=== PATIENT | male | born 1965 | race Caucasian/White ===

== ENCOUNTER 2017-03-29 14:50 | Emergency (ER) | payer OTHER ==
[~2017-03-29] VITALS: Ht 175.3 cm; Wt 77.3 kg
[2017-03-29 15:05] VITALS: BP 123/78; PULSE 88; RESP 16; O2SAT 97
--- NOTE | 2017-03-29 15:28 | ED.REPORT ---
HPI-Extremity Problem Lower Date of Service March 29, 2017 ED Provider: Lul is a 51-year-old male presents with chief complaint of right knee pain. He believes he dislocated his knee. Sensation states that he was playing catch when he stepped in all his knee collapsed to the inside. He states that his lower leg was out of alignment until he stood up and it popped back in. Patient was able to walk on the leg after that. Reports pain in the knee. Nursing Notes Stated Complaint: DISLOCATED RIGHT KNEE Chief Complaint: Extremity Trauma Nursing Notes Reviewed: Yes Allergies: Coded Allergies: No Known Allergies (Unverified , 03/29/17) No Active Prescriptions or Reported Meds General Time Seen by MD: 15:28 Chief Complaint Knee injury right Past Medical History Past Medical History Hx of alcohol abuse Hx of methamphetamine abuse left shoulder injury TIA Past Surgical History Left shoulder surgery Family History Reports: Stroke Smoking History Former Smoker Social History Alcohol Use: In recovery Drug Use: Meth Ambulatory Status Independent Review of Systems Review of Systems Note: Negative unless stated otherwise in history of present illness Physical Exam General: Well appearing, well developed, well nourished, no acute distress. Hip: Nontender, full range of motion. Right knee: Normal to inspection, extremely mild tenderness at the lateral tibial plateau. Negative tenderness at medial/lateral joint line, tibial tuberosity, patella. Negative apprehension sign. Negative Pierre's cyst. Excellent range of motion. No laxity noted in either varus or valgus stress, anterior or posterior drawer test. Right foot/ankle: DP and PT pulses 2+, foot is warm with brisk capillary refill , sensation intact. Ankle normal to inspection, nontender with full range of motion. Head: Atraumatic, normocephalic. Eyes: No scleral icterus or injection. No discharge. Vision grossly intact. ENT: Voice clear, hearing grossly intact. Respiratory: No respiratory distress, no increased work of breathing. Speaks in complete sentences. Skin: Warm and dry. Neurological: Grossly nonfocal. Psychological: alert and oriented. Speech appropriate, linear and logical. Behavior appropriate. Initial Vital Signs Vital Signs (First) Date Time Temp Pulse Resp B/P Pulse Ox O2 Delivery O2 Flow Rate FiO2 03/29/17 15:05 36.4 88 16 123/78 97 Room Air Initial VS: Vital signs normal Re-Eval/Medical Decision Med Decision/Clinical Course 51-year-old male with history of substance abuse presents with a chief complaint of right knee pain. He believes he dislocated his knee when he stepped in hole playing catch and relocated it when he stood up from falling. Patient is walking on the affected limb. Physical examination reveals a normal to inspection, with minimal tenderness over the lateral tibial plateau, good range of motion. PT and DP pulses 2+, warm with brisk capillary refill. Sensation intact. No laxity noted on physical examination. At this point I am reassured that this is unlikely to be a dislocated and spontaneously reduced dislocation which would raise concern for vascular compromise. The patient declined x-ray, and I have low suspicion for fracture. Considering that during the patient is walking on the limb and has a extremely benign physical examination I have low concern for disruption of any of the ligaments of the knee or meniscus. Discharged to home with instructions for RICE and Matthew wrap. Patient reports improvement in pain with ketorolac and acetaminophen. Advised regarding [id number] analgesia, primary care follow-up, emergency return precautions. Patient verbalizes understanding of and consent to the plan. Discharge & Departure Impression: Primary Impression: Right knee pain Chronicity: acute Qualified Code: M25.561 - Pain in right knee Disposition: Home Discharge Condition All VS Reviewed: Yes Condition: Stable Patient Instructions: RICE Therapy (ED) Additional Instructions: Evaluation in the emergency department for right knee pain includes history and physical examination, both of which are reassuring that there is unlikely to be due to a serious injury. While I cannot definitively rule out a fracture, I feel is unlikely and you have declined an x-ray, which I feel is reasonable. Treatment is with rest, ice, compression and elevation. Rest the affected limb as much possible over the next several days, apply ice 2-3 times a day, keep the knee in an Matthew compression wrap to help reduce swelling and keep it elevated at or near the level of your heart as much as possible. We have placed the knee in an Matthew wrap in the emergency department. Feel free to take this off to bathe or adjust for comfort. The pain is best treated with up to 800 mg of ibuprofen (Advil, Motrin) every 6 hours, or up to 1000 mg of acetaminophen (Tylenol) every 6 hours. These drugs can be taken at the same time for more severe pain. Follow-up with your primary care provider if this is not significantly improved in about a week. Return to emergency department for any new or worsening symptoms including increasing pain or the development of a cold/numb foot. Referrals: BELIA PETERS (PCP) EDSupervising Provider for APC: Yaw Kern MD copies to: BELIA PETERS Shawna L MD March 29, 2017 15:28 Rufino Gan PA-C March 29, 2017 15:56
== END 2017-03-29 16:30 | disposition home or self-care (01) ==
LOC: SED 14:50
DX: M25.561 Pain in right knee (principal); X50.9XXA Other and unspecified overexertion or strenuous movements or postures, initial encounter; Y93.79 Activity, other specified sports and athletics; Y92.9 Unspecified place or not applicable; Y99.8 Other external cause status; F15.10 Other stimulant abuse, uncomplicated; Z87.891 Personal history of nicotine dependence
CPT/HCPCS: 96372; 99283; J1885

== ENCOUNTER 2017-06-02 01:46 | Emergency (ER) | payer OTHER ==
[~2017-06-02] VITALS: Ht 175.3 cm; Wt 75.0 kg
[2017-06-02 01:50] VITALS: BP 154/92; PULSE 52; RESP 18; O2SAT 100
--- NOTE | 2017-06-02 02:27 | ED.REPORT ---
HPI-Dental/Mouth Prob Date of Service Jun 02, 2017 ED Provider: Dr. Chris Dunlap MD A 52 year old male with a history of alcohol abuse, meth abuse and previous TIA presents to the ED complaining right lower dental pain that became increasingly worse earlier this evening. He reports insomnia secondary to pain and is currently seeking relief from the pain. The patient does not currently have a dentist or a scheduled appointment. Nursing Notes Stated Complaint: DENTAL PAIN Chief Complaint: Dental Nursing Notes Reviewed: Yes Allergies: Coded Allergies: No Known Allergies (Unverified , 06/02/17) Scheduled Amoxicillin (Amoxicillin) 500 Mg Tablet 500 MG PO TID Scheduled PRN Ibuprofen (Ibuprofen) 600 Mg Tablet 600 MG PO QID PRN PRN For Pain Tramadol (Tramadol) 50 Mg Tablet 100 MG PO Q6H PRN PRN For Pain General Time Seen by MD: 02:27 Chief Complaint Other (Dental Pain) Hx Obtained From: Patient Arrived By: Walk-in Onset Occurred: 1 - 4 hours ago Symptom Duration: Since onset Location: : Tooth lower R molar Quality: Painful Radiation: : Does not radiate Severity: Current: Mild Severity: Maximum: Mild Pertinent Negative: Pt denies other symptoms Recent Healthcare: No recent doctor visit, No recent hospitalization Past Medical History Past Medical History Hx of alcohol abuse Hx of methamphetamine abuse Left shoulder injury TIA Past Surgical History Left shoulder surgery Family History Reports: Stroke Smoking History Former Smoker Social History Alcohol Use: In recovery Drug Use: Meth Ambulatory Status Independent Review of Systems Ears / Nose / Throat: Reports: Toothache Complete sys rev & neg: except as marked. Physical Exam Initial Vital Signs Vital Signs (First) Date Time Temp Pulse Resp B/P Pulse Ox O2 Delivery O2 Flow Rate FiO2 06/02/17 01:50 37.0 52 18 154/92 100 Room Air Initial VS: Reviewed Extremities: Vascular intact, Neuro intact, No swelling, No tenderness Skin: Warm, Dry, No cyanosis Neurologic: Alert, Oriented, Nonfocal ENT: Atraumatic, Airway patent, Mucous membranes moist, Pharynx NL Dental / Gums: Positive: Decay extensive, Decay single tooth (#32), Dental abscess, Dental caries present, Dentition poor Neck: Atraumatic, Supple, Full range of motion General/Constitutional: Awake, Alert, No acute distress Head / Eyes: Atraumatic, Normocephalic, PERRL Respiratory / Chest: Atraumatic, Breath sounds NL, Breath sounds = bilat, No respiratory distress Cardiovascular: Heart rate NL, Regular rhythm, Heart sounds NL Procedures Dental Nerve Block Dental Nerve Block Note: Lower right jaw block Time: :26 Block Performed by: ED physician Consent / Setup / Site Prep: Consent from patient, Time-out performed, Mucous membrane dried, Topical anesthetic rosendo, Hand hygiene observed, Stand sterile technique, Sterile drapes applied Local Anesthesia: Lidocaine w epi 1% Post-Procedure / Complications: No complications, Condition improved, Tolerated procedure well, Patient stable, No bleeding Re-Eval/Medical Decision Med Decision/Clinical Course Dental abscess in the right lower provided with dental block with relief. Home with amoxicillin brief tramadol and ibuprofen. Follow-up with dentist strongly encouraged Re-Evaluation/Progress : Time of Eval: : Patient Status: Condition improved Re-Evaluation/Progress Note: Patient is re-evaluated. Dental block is performed. Patient tolerates the procedure without any complications. The patient understands and agrees with the intended treatment plan. Counseled Regarding: Diagnosis, Need for follow-up, When/why to return to ED Discharge & Departure Primary Impression: Toothache Additional Impression: Dental abscess Disposition: Home Discharge Condition All VS Reviewed: Yes Condition: Improved Patient Instructions: Dental Abscess (ED), Dental Caries (ED), Toothache (ED) Additional Instructions: It is critical that you see a dentist JULIETA. Refer to referral list for local dental resources. It is not necessary to have a physician referral to see a dentist. Take amoxicillin three times a day. Take the ibuprofen four times a day. He may use tramadol two tablets four times a day as needed for the first two days. Never exceed eight tablets a day of tramadol. Return if any immediate issues with swallowing, breathing, or speaking. Referrals: Jennie Diaz MD (PCP) [facility] Scribe Attestation Portions of this note were transcribed by Adrienne Kennedy. I, Dr. Dunlap personally performed the history, physical exam and medical decision-making; I reviewed and confirmed the accuracy of the information in the transcribed note. copies to: Jennie Diaz MD, Christopher W MD Jun 02, 2017 02:27 ADRIENNE KENNEDY Jun 02, 2017 02:36
[2017-06-02] MEDS ORDERED: Bupivacaine 0.5%/EPI 50 mL Inj INFILTRATE ONE (02:35)
[2017-06-02] MEDS ORDERED: Dexamethasone 20 mg/2 mL Oral Solution PO ONE (02:35)
[2017-06-02] MEDS ORDERED: Lidocaine 2%-Epi 1:100,000 20 mL Inj ONE (03:26)
[2017-06-02] MEDS ORDERED: AMOX500T2 PO (03:37)
[2017-06-02] MEDS ORDERED: TRAM50TA2 PO (03:37)
[2017-06-02] MEDS ORDERED: IBUP-1827 PO (03:37)
[2017-06-02 04:00] VITALS: BP 146/90; PULSE 61; RESP 16; O2SAT 98
== END 2017-06-02 04:02 | disposition home or self-care (01) ==
LOC: SED 01:46
DX: K08.89 Other specified disorders of teeth and supporting structures (principal); K04.7 Periapical abscess without sinus; Z87.891 Personal history of nicotine dependence; Z86.73 Personal history of transient ischemic attack (TIA), and cerebral infarction without residual deficits
CPT/HCPCS: 64400; 99283; J1885

== ENCOUNTER 2017-06-28 16:31 | Emergency (ER) | payer OTHER ==
[~2017-06-28] VITALS: Ht 175.3 cm; Wt 75.0 kg
[~2017-06-28 16:31] MED LIST: AMOX500T2 PO; IBUP-1827 PO; TRAM50TA2 PO
[2017-06-28 16:48] VITALS: BP 122/80; PULSE 61; RESP 20; O2SAT 98
--- NOTE | 2017-06-28 16:55 | ED.REPORT ---
HPI-Chest Pain 40 and Over Date of Service Jun 28, 2017 ED Provider: Galindo Matthews MD Pt is a 52 y/o male w/ a hx of TIA, polysubstance abuse, presenting to the ED c/ o intermittent CP onset 2 days ago. The patient was sitting down and began to experience a sensation of something pushing out below his left nipple lasting 10 minutes which was followed by a short duration syncopal episode. His chest pain is resolved at time of arrival and seems to return intermittently but mildly. There was never any radiation of his pain and it is not brought on by anything. Since the episode he has been experiencing SOB and fatigue. He smoked meth 2 days ago which he apparently doesn't do often. He says he had a similar episode in August and was told it was a TIA. He has a bed available at detox at 03:00 to make sure that he doesn't continue to use drugs. PCP: Joe Nursing Notes Stated Complaint: LIGHT HEADED,CHEST PAIN Chief Complaint: Chest Pain Nursing Notes Reviewed: Yes Allergies: Coded Allergies: No Known Allergies (Unverified , 06/02/17) Scheduled Amoxicillin (Amoxicillin) 500 Mg Tablet 500 MG PO TID Scheduled PRN Ibuprofen (Ibuprofen) 600 Mg Tablet 600 MG PO QID PRN PRN For Pain Tramadol (Tramadol) 50 Mg Tablet 100 MG PO Q6H PRN PRN For Pain General Time Seen by MD: 16:54 Chief Complaint Chest pain Hx Obtained From: Patient Arrived By: Walk-in Sudden in Onset?: Yes Onset Occurred: 2 days ago Symptom Duration: Intermittent Location: : Chest left Quality: Painful Severity: Current: No pain currently Severity: Maximum: Moderate Past Medical History Past Medical History Hx of alcohol abuse Hx of methamphetamine abuse Left shoulder injury TIA Past Surgical History Left shoulder surgery Arm Finger Family History Reports: Stroke Smoking History Former Smoker Social History Alcohol Use: In recovery Drug Use: Meth Ambulatory Status Independent Review of Systems Constitutional: Reports: Fatigue Respiratory: Reports: Shortness of breath Cardiovascular: Reports: Chest pain Neurologic: Reports: Syncope Complete sys rev & neg: except as marked. Physical Exam Initial Vital Signs Vital Signs (First) Date Time Temp Pulse Resp B/P Pulse Ox O2 Delivery O2 Flow Rate FiO2 06/28/17 16:48 37.2 61 20 122/80 98 Room Air Initial VS: Reviewed, Vital signs normal Head / Eyes: Atraumatic, Normocephalic ENT: Mucous membranes moist, Conjunctiva normal Neck: Full range of motion Extremities: Vascular intact, Neuro intact, No swelling Skin: Warm, Dry, No cyanosis Neurologic: Alert, Oriented, Nonfocal Psychiatric: Mood/affect normal, Behavior normal, Normal thought content General/Constitutional: Awake, Alert, No acute distress, Well appearing, Cooperative, Not toxic appearing Respiratory / Chest: Breath sounds NL, Breath sounds = bilat, No respiratory distress, No rales, No rhonchi, No wheezing, No stridor, No chest tenderness Cardiovascular: Heart rate NL, Regular rhythm, Heart sounds NL, No gallop, No murmurs, No rubs Abdomen: Soft, Non-tender, No guarding, No rebound, No distention Interpretation & Diagnostics Lab Results Interpretation Result Diagram: 06/28/17 1719 06/28/17 1719 Test 06/28/17 17:19 White Blood Count 6.1th/mm3 (3.8-10.1) Red Blood Count 4.64mil/mm3 (4.40-5.80) Hemoglobin 14.4g/dL (13.8-17.2) Hematocrit 40.9% (41.0-50.0) Mean Corpuscular Volume 88.1fL (81-100) Mean Corpuscular Hemoglobin 31.0pg (27.0-35.0) Mean Corpuscular Hemoglobin Concent 35.2% (32.0-37.0) Red Cell Distribution Width 12.2% (12.3-15.4) Platelet Count 198bil/L (150-400) Neutrophils (%) (Auto) 43.2% (40-74) Lymphocytes (%) (Auto) 45.2% (14-46) Monocytes (%) (Auto) 9.3% (4-12) Eosinophils (%) (Auto) 1.6% (0-5) Basophils (%) (Auto) 0.5% (0-3) Sodium Level 137mEq/L (134-144) Potassium Level 3.7mEq/L (3.5-5.2) Chloride Level 99mEq/L (97-108) Carbon Dioxide Level 22mmol/L (18-29) Blood Urea Nitrogen 38mg/dL (6-24) Creatinine 0.87mg/dL (0.76-1.27) Estimat Glomerular Filtration Rate 98mL/min (>59) Glucose Level 106mg/dL (60-99) Calcium Level 9.2mg/dL (8.5-10.1) Magnesium Level 2.3mg/dL (1.6-2.6) Total Bilirubin 0.6mg/dL (0.0-1.2) Aspartate Amino Transf (AST/SGOT) 19U/L (0-50) Alanine Aminotransferase (ALT/SGPT) 11U/L (0-44) Alkaline Phosphatase 48U/L (25-150) Troponin T < 0.010ug/L (0.0-0.011) Total Protein 7.2g/dL (6.4-8.4) Albumin 4.5g/dL (3.4-5.0) ECG Interpretation ECG Interpretation: Sinus rhythm rate 53 Probable LVH No acute ST changes Time: 17:08 Interpreted by: ED physician Normal ECG Interpretation: No acute ischemic changes X-Ray Chest Interpretation Chest Xray Interpretation: IMPRESSION: Source of chest pain is not seen. Dictated by: Isiah Lee M.D. on 06/28/2017 at 18:23 Approved by: Isiah Lee M.D. on 06/28/2017 at 18:23 View: Portable, 1 view Interpretation / Wet Read by: Interpret - Radiologist Re-Eval/Medical Decision Source of Hx: Old records Counseled Regarding: Diagnosis, Lab results, Need for follow-up, When/why to return to ED Discharge & Departure Primary Impression: Non-cardiac chest pain Additional Impression: Polysubstance abuse Disposition: Home Discharge Condition All VS Reviewed: Yes Condition: Stable Additional Instructions: Emergency Department evaluation included reviewed examination labs and ECG. No serious cause for chest pain is identified. He is cleared for crisis respite, not requiring specific medications at this point. Do not use methamphetamine or other street drugs. To crisis respite, follow-up with primary care at [facility] in next week. Referrals: Jennie Diaz MD (PCP) Scribe Attestation Portions of this note were transcribed by Tino Badillo. I, Dr. Matthews personally performed the history, physical exam and medical decision-making; I reviewed and confirmed the accuracy of the information in the transcribed note. copies to: Jennie Diaz MD, Donald L MD Jun 28, 2017 16:54 TINO BADILLO Jun 28, 2017 17:10
[2017-06-28 17:28] LABS: BASOPHILS % (AUTO) 0.5 % (0-3); EOSINOPHILS % (AUTO) 1.6 % (0-5); MONOCYTES % (AUTO) 9.3 % (4-12); Mean Corpuscular Volume 88.1 fL (81-100); NEUTROPHILS % (AUTO) 43.2 % (40-74); Platelet Count 198 bil/L (150-400)
[2017-06-28 17:54] LABS: TROPONIN T < 0.010 ug/L (0.0-0.011)
[2017-06-28 18:04] LABS: Magnesium 2.3 mg/dL (1.6-2.6)
--- NOTE | 2017-06-28 18:25 | DRSVH ---
PROCEDURE: X-RAY CHEST ONE VIEW, PORTABLE ([id number]) INDICATIONS: chest pain TECHNIQUE: One view of the chest was acquired. COMPARISON: [facility], CR, XR CHEST 1VW (PORTABLE), 08/18/2016, 14:02. FINDINGS: Surgical changes and devices: None. Lungs and pleura: No pleural effusions or pneumothorax. Lungs are clear. Mediastinum: Mediastinal contours appear normal. Heart size is normal. Bones and chest wall: No suspicious bony lesions. Overlying soft tissues appear unremarkable. IMPRESSION: Source of chest pain is not seen. Dictated by: Isiah Lee M.D. on 06/28/2017 at 18:23 Approved by: Isiah Lee M.D. on 06/28/2017 at 18:23
[2017-06-28 18:27] VITALS: BP 125/58; PULSE 54; RESP 16; O2SAT 97
[2017-06-28 20:06] VITALS: BP 129/64; PULSE 54; RESP 16; O2SAT 98
[2017-06-29 02:48] VITALS: BP 130/66; PULSE 56; RESP 16; O2SAT 99
== END 2017-06-29 02:59 | disposition home or self-care (01) ==
LOC: SED 16:31
DX: R07.89 Other chest pain (principal); F19.10 Other psychoactive substance abuse, uncomplicated; R06.02 Shortness of breath; R53.83 Other fatigue; Z86.73 Personal history of transient ischemic attack (TIA), and cerebral infarction without residual deficits; Z87.891 Personal history of nicotine dependence